=== PATIENT | female | born 1990 | race Caucasian/White ===

== ENCOUNTER → 2025-01-08 09:03 | Outpatient (REF) | payer OTHER, SELFPAY | LOC: PNTC 09:03 | PROVIDERS: ATTENDING PHYSICIAN Obstetrics & Gynecology | DX: Z36.0 Encounter for antenatal screening for chromosomal anomalies (principal); Z36.82 Encounter for antenatal screening for nuchal translucency; O09.521 Supervision of elderly multigravida, first trimester; O99.211 Obesity complicating pregnancy, first trimester | CPT/HCPCS: 76801; 76813 ==

== ENCOUNTER → 2025-01-30 13:17 | Outpatient (REF) | payer OTHER, SELFPAY | LOC: PNTC 13:17 | PROVIDERS: ATTENDING PHYSICIAN Obstetrics & Gynecology | DX: O99.212 Obesity complicating pregnancy, second trimester (principal); O09.522 Supervision of elderly multigravida, second trimester; Z86.32 Personal history of gestational diabetes; O35.5XX0 Maternal care for (suspected) damage to fetus by drugs, not applicable or unspecified; O09.92 Supervision of high risk pregnancy, unspecified, second trimester; O34.211 Maternal care for low transverse scar from previous cesarean delivery; Z36.3 Encounter for antenatal screening for malformations | CPT/HCPCS: 76805; 93976 ==

== ENCOUNTER → 2025-02-27 13:36 | Outpatient (REF) | payer OTHER, SELFPAY | LOC: PNTC 13:36 | PROVIDERS: ATTENDING PHYSICIAN Obstetrics & Gynecology | DX: O34.219 Maternal care for unspecified type scar from previous cesarean delivery (principal); Z87.59 Personal history of other complications of pregnancy, childbirth and the puerperium; O24.419 Gestational diabetes mellitus in pregnancy, unspecified control; O99.212 Obesity complicating pregnancy, second trimester; Z36.3 Encounter for antenatal screening for malformations; Z36.86 Encounter for antenatal screening for cervical length | CPT/HCPCS: 76811; 76817; 93976 ==

== ENCOUNTER → 2025-04-14 13:35 | Outpatient (REF) | payer OTHER, SELFPAY | LOC: PNTC 13:35 | PROVIDERS: ATTENDING PHYSICIAN Obstetrics & Gynecology | DX: O09.522 Supervision of elderly multigravida, second trimester (principal); O99.212 Obesity complicating pregnancy, second trimester | CPT/HCPCS: 76816 ==